=== PATIENT | female | born 1985 | race Caucasian/White ===

== ENCOUNTER 2021-03-08 15:48 | Inpatient (IN) | payer OTHER ==
[~2021-03-08] VITALS: Ht 154.9 cm; Wt 62.6 kg
[2021-03-08] MEDS ORDERED: PRENATAL CAPLE1 EAC1 PO (17:23)
== END 2021-03-17 12:10 | disposition home or self-care (01) | DRG 786 ==
LOC: OB/GYN 15:48 → LDR 15:48 → OB/GYN 03-11 11:57
PROVIDERS: ADMIT Obstetrics & Gynecology; ATTEND Obstetrics & Gynecology
PROC: BY4FZZZ Ultrasonography of Third Trimester, Single Fetus (ICD-10-PCS; 2021-03-08)
PROC: 4A1HXFZ Monitoring of Products of Conception, Cardiac Rhythm, External Approach (ICD-10-PCS; 2021-03-08)
PROC: BY4FZZZ Ultrasonography of Third Trimester, Single Fetus (ICD-10-PCS; 2021-03-12)
PROC: 10D00Z1 Extraction of Products of Conception, Low, Open Approach (ICD-10-PCS; principal; 2021-03-14 14:00)
DX: O42.112 Preterm premature rupture of membranes, onset of labor more than 24 hours following rupture, second trimester (principal); O41.1220 Chorioamnionitis, second trimester, not applicable or unspecified; O41.02X0 Oligohydramnios, second trimester, not applicable or unspecified; O34.211 Maternal care for low transverse scar from previous cesarean delivery; Z37.0 Single live birth; Z3A.27 27 weeks gestation of pregnancy